=== PATIENT | male | born 1980 | race Caucasian/White ===

== ENCOUNTER 2019-01-29 16:54 | Emergency (ER) | payer SELFPAY ==
--- NOTE | 2019-01-29 17:45 | RAD ---
RIGHT HAND THREE VIEWS: 01/29/19 HISTORY: Injury, right hand pain. FINDINGS/IMPRESSION: No acute fracture or dislocation is identified. There is a tiny radiopaque density in the soft tissue s of the distal aspect of the middle finger, suspicious for foreign body. POS: [facility]
[2019-01-29] MEDS ORDERED: HYDROcodone/Acetaminophen 5/325 mg Tablet ONE (18:25)
[2019-01-29] MEDS ORDERED: Ibuprofen 800 MG TAB ONE (18:40)
[2019-01-29] MEDS ORDERED: Bacitracin 1 PK ONE (19:40)
== END 2019-01-29 20:40 | disposition home or self-care (01) ==
LOC: ERS 16:54
DX: S60.511A Abrasion of right hand, initial encounter (principal); S30.810A Abrasion of lower back and pelvis, initial encounter; F17.210 Nicotine dependence, cigarettes, uncomplicated; V89.2XXA Person injured in unspecified motor-vehicle accident, traffic, initial encounter